=== PATIENT | male | born 1940 | race Caucasian/White ===

== ENCOUNTER 2021-05-13 14:51 | Inpatient (IN) | payer OTHER ==
[~2021-05-13] VITALS: Ht 175.3 cm; Wt 104.1 kg
[2021-05-13 16:00] VITALS: BP 124/89
[2021-05-13] MEDS ORDERED: LATANOPROST 0.2.5 ML OPHTHALMIC (18:00)
[2021-05-13] MEDS ORDERED: GLYBURIDE 5 MG T5 M1 PO (19:42)
[2021-05-13] MEDS ORDERED: ASA81BEC PO (19:42)
[2021-05-13] MEDS ORDERED: VYZULTA5 ML OPHTHALMIC (19:43)
[2021-05-13] MEDS ORDERED: TOPROL XL25 MG (19:44)
[2021-05-13] MEDS ORDERED: ROSUVASTATIN CAL5 MG PO (19:45)
--- NOTE | 2021-05-13 19:50 | NUR ---
REPORT RECEIVED FROM [facility]. NURSE STATED PT IS AN NSTEMI ORIGINALLY SCHEDULLED FOR A CABG BUT UNABLE DUE TO A COVID POSITIVE TEST. PT WAS RESCHEDULED AND BEGAN TO HAVE SHORTNESS OF BREATH. PT WENT INTO [facility] FOR THOSE SYMPTOMS. 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 VITAL SIGNS STABLE UPON ADMISSION AND PT DENIES PAIN.
[2021-05-13 19:52] VITALS: BP 103/65
[2021-05-13 20:54] LABS: HEMATOCRIT 46.4 % (42.0-52.0); HEMOGLOBIN 15.5 gm/dL (14.0-18.0); MCH 31.4 pg (26.0-34.0); MCHC 33.3 g/dL (28.0-37.0); MCV 94.2 fL (80.0-100.0); RBC 4.92 mil/uL (4.50-6.00); RDW 13.1 % (10.5-14.5); WBC 6.1 thou/uL (4.0-11.0)
[2021-05-13 22:07] LABS: APTT 28.2 Seconds (24.5-32.8); INR 1.04; PROTIME 11.3 Seconds (10.5-12.1)
[2021-05-13 23:30] VITALS: BP 108/66
[2021-05-14 04:27] VITALS: BP 113/76
[2021-05-14 05:41] LABS: ABSOLUTE NEUTROPHILS 3.3 thou/uL (1.4-8.2); BASOPHILS 1.8 % (0.0-2.0); EOSINOPHILS 5.7 % (0.0-3.0); HEMATOCRIT 42.5 % (42.0-52.0); HEMOGLOBIN 14.6 gm/dL (14.0-18.0); LYMPHOCYTES 17.3 % (24.0-44.0); MCH 31.5 pg (26.0-34.0); MCHC 34.2 g/dL (28.0-37.0); MCV 92.1 fL (80.0-100.0); MONOCYTES 9.8 % (1.0-8.0); PLATELET COUNT 223 thou/uL (150-400); POLYS 65.4 % (36.0-66.0); RBC 4.62 mil/uL (4.50-6.00); RDW 12.6 % (10.5-14.5); WBC 5.1 thou/uL (4.0-11.0)
[2021-05-14 06:05] LABS: CHOLESTEROL 153 mg/dL (<200); HDL CHOLESTEROL 41 mg/dL (>40); LDL CHOLESTEROL 82 mg/dL (<100); TC:HDL 3.7 Ratio (Not establshd); TRIGLYCERIDE 154 mg/dL (<150); VLDL 31 mg/dL (<40)
[2021-05-14 06:06] LABS: SERUM ASSESSMENT Clear
[2021-05-14 06:12] LABS: CALCIUM 8.7 mg/dL (8.5-10.1); POTASSIUM 3.8 mmol/L (3.5-5.1)
--- NOTE | 2021-05-14 07:16 | EKG ---
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 : 1940 Requested By: Latisha Nieto Order Number: [id number] MD: Migel Raines Measurements Intervals [place] Rate: 90 P: 77 OK: 251 QRS: 82 QRSD: 106 T: 191 QT: 408 QTc: 500 Interpretive Statements Sinus rhythm Ventricular premature complex Prolonged [place] interval Anterior infarct, old Nonspecific T abnormalities, lateral leads No previous ECG available for comparison Electronically Signed On 05-14-2021 7:15:52 CDT by Migel Raines [email or web address] <ELECTRONICALLY SIGNED> By: Migel Raines MD, [facility] 05/14/21 0715 1627 26 Migel Raines MD, FACC /EPI
--- NOTE | 2021-05-14 07:36 | NUR ---
SLEPT MOST OF SHIFT. STARTED HEPARIN GTT PER PROTOCOL PER DR. DEE. DENIES COMPLAINTS OF PAIN. STATES SHORTNESS OF AIR IS BETTER THIS AM. WORKING ON GOALS AND PLAN OF CARE FOR NOC. DR. JIMENEZ REEVALUATING FOR OHS. CONTINUE TO ASSSAKINA GALVIN.
[2021-05-14 08:03] VITALS: BP 111/68
[2021-05-14 09:09] LABS: CALCIUM 8.9 mg/dL (8.5-10.1); POTASSIUM 4.1 mmol/L (3.5-5.1)
[2021-05-14 09:17] LABS: ALBUMIN 3.3 g/dL (3.4-5.0); TOTAL BILIRUBIN 1.1 mg/dL (0.2-1.0); TOTAL PROTEIN 5.6 g/dL (6.4-8.2)
--- NOTE | 2021-05-14 12:01 | 2DMMODE ---
[facility] [place] [address] 2 D/M-MODE ECHOCARDIOGRAM Name: IRENE MATTA Room #: 210-P ADM IN M.R.#: [id number] Admission: 05/13/21 Attend Phys: Anthony Garcia MD Discharge: Date of : 39 Report #: [id number] THIS REPORT FOR: cc: Angelia Leach Tara M. PA Lammoglia, Francisco J. MD ~ APPROVED REPORT Study performed: 05/14/2021 11:07:56 EXAM: Comprehensive 2D, Doppler, and color-flow Echocardiogram Patient Location: Bedside Room #: 210 Status: routine BSA: 2.21 HR: 79 bpm BP: 111/68 mmHg Rhythm: Regular Other Information Study Quality: Adequate Indications Chest Pain Pre-Op CABG. 2D Dimensions RVDd: 33.00 mm IVSd: 9.03 (7-11mm) LVOT Diam: 23.14 (18-24mm) LVDd: 69.00 mm PWd: 9.00 (7-11mm) Ascending Ao: 38.00 (22-36mm) LVDs: 51.00 (25-40mm) Left Atrium: 42.00 (27-40mm) Aortic Root: 39.00 mm Volumes Left Atrial Volume (Systole) Single Plane 4CH: 68.14 mL Single Plane 2CH: 58.40 mL LA ESV Index: 30.00 mL/m2 Aortic Valve AoV Peak Raman.: 0.89 m/s AO Peak Gr.: 3.18 mmHg LVOT Max P.98 mmHg LVOT Max V: 0.50 m/s [facility] [address] [place] [address] 2 D/M-MODE ECHOCARDIOGRAM Name: IRENE MATTA Room #: 210-P [facility] IN [facility].#: [id number] Admission: 05/13/21 Attend Phys: Anthony Garcia MD Discharge: Date of : 39 Report #: [id number] Vmax: 2.34 cm2 Mitral Valve E/A Ratio: 0.7 MV Decel. Time: 123.83 ms MV E Max Raman.: 0.64 m/s MV A Raman.: 0.90 m/s MV PHT: 35.91 ms IVRT: 72.66 ms Pulmonary Valve PV Peak Raman.: 0.46 m/s PV Peak Gr.: 0.86 mmHg Pulmonary Vein P Vein S: 0.25 m/s P Vein D: 0.32 m/s P Vein S/D Ratio: 0.78 Tricuspid Valve TR Peak Raman.: 2.12 m/s RAP Estimate: 5.00 mmHg TR Peak Gr.: 18.00 mmHg PA Pressure: 23.00 mmHg Left Ventricle Left ventricle is severely dilated. Mild basal septal hypertrophy is present. Left ventricular systolic function is severely decreased. LVEF is 20%. Mild diastolic dysfunction is present (impaired relaxation pattern). Right Ventricle The right ventricle is normal size. Right ventricle is mildly hypokinetic. Atria The left atrium size is normal. The right atrium size is normal. Aortic Valve The aortic valve is normal in structure. Trace aortic regurgitation. There is no aortic valvular stenosis. Mitral Valve Mitral valve leaflets are mildly thickened. Mild mitral annular calcification. Mild mitral regurgitation. No evidence of mitral valve stenosis. [facility] [place] [address] [place] [address] 2 D/M-MODE ECHOCARDIOGRAM Name: IRENE MATTA Room #: [facility]- ADM IN M.R.#: [id number] Admission: 05/13/21 Attend Phys: Anthony Garcia MD Discharge: Date of : 39 Report #: [id number] Tricuspid Valve The tricuspid valve is normal in structure. Trace tricuspid regurgitation. Estimated PAP is 23mmHg. Pulmonic Valve The pulmonary valve is normal in structure. Trace pulmonic regurgitation. Great Vessels The sinuses are mildly dilated at 4.0cm. The ascending aorta is borderline dilated. IVC is normal in size and collapses >50% with inspiration. Pericardium Small pericardial fluid noted anterior by the right atrium. <Conclusion> Left ventricle is severely dilated. Mild basal septal hypertrophy is present. LVEF is 20%. The right ventricle is normal size. The left atrium size is normal. The aortic valve is normal in structure. Trace aortic regurgitation. Mitral valve leaflets are mildly thickened. Mild mitral annular calcification. Mild mitral regurgitation. The tricuspid valve is normal in structure. Trace tricuspid regurgitation. Estimated PAP is 23mmHg. The pulmonary valve is normal in structure. Trace pulmonic regurgitation. The sinuses are mildly dilated at 4.0cm. The ascending aorta is borderline dilated. Small pericardial fluid noted anterior by the right atrium. <ELECTRONICALLY SIGNED> By: Cisco Hammond MD 05/14/211200 00 00 Cisco Hammond MD /INF
[2021-05-14 12:07] VITALS: BP 102/63
[2021-05-14 14:36] LABS: URINE BILIRUBIN NEGATIVE (Negative); URINE BLOOD TRACE (Negative); URINE CLARITY CLEAR; URINE COLOR YELLOW; URINE GLUCOSE-RANDOM* TRACE (Negative); URINE KETONES NEGATIVE (Negative); URINE LEUKOCYTES-REFLEX NEGATIVE (Negative); URINE NITRITE-REFLEX NEGATIVE (Negative); URINE PROTEIN (DIPSTICK) NEGATIVE (Negative); URINE SPECIFIC GRAVITY 1.015 (1.005-1.035); URINE UROBILINOGEN 0.2 E.U./dl (0.2-1.0)
[2021-05-14 15:21] VITALS: BP 93/67
--- NOTE | 2021-05-14 18:28 | NUR ---
PT HAD A BUSY MORNING WITH THE MULTIPLE TESTS THROUGHOUT. PT IS ON HEPARIN WITH COREG TESTED THIS AFTERNOON THAT CAME BACK AT 46.9 AND BY THE PROTOCAL PT RECEIVED A 3180 UNIT BOLUS AND AN INCREASE OF 2.1 ML/HR MAKING A TOTAL INFUSION OF 13.2 ML/HR. PT ALSO RECEIVED HIS FLU SHOT TODAY.
[2021-05-14 20:10] VITALS: BP 101/69
[2021-05-14 23:23] VITALS: BP 127/81
[2021-05-15] VITALS (28 sets, daily range): BP systolic 84–121; BP diastolic 50–75
[2021-05-15 03:06] LABS: GLYCOHEMOGLOBIN (HGB A1C) 10.2 % (4.8-5.6)
--- NOTE | 2021-05-15 03:13 | NUR ---
PT IS A/O X4 AND IS UP AD [facility]. ROOM AIR. VSS. AFEBRILE. DENIES C/O PAIN OR DISCOMFORT. MEDICATIONS GIVEN PER OCT. HELD THE CARVEDILOL. CURRENTLY NPO DIET AWAITING PROCEDURE IN THE AM. FALL PRECAUTIONS IN PLACE, CALL LIGHT IS WITHIN REACH. CALLS OUT APPROPRIATELY FOR ASSISTANCE.
--- NOTE | 2021-05-15 10:31 | EKG ---
[place] [address] 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 : 1940 Requested By: Graeme Sena Order Number: [id number] MD: Migel Raines Measurements Intervals [place] Rate: 73 P: -21 DC: 271 QRS: 52 QRSD: 114 T: QT: 415 QTc: 458 Interpretive Statements Sinus rhythm Prolonged DC interval Borderline low voltage, extremity leads Anteroseptal infarct, old Minimal ST depression, inferior leads Baseline wander in lead(s) V2,V3 Compared to ECG 05/13/2021 16:27:49 ST (T wave) deviation now present Ventricular premature complex(es) no longer present T-wave abnormality no longer present Myocardial infarct finding still present Electronically Signed On 05-15-2021 10:31:27 CDT by Migel Raines [email or web address] <ELECTRONICALLY SIGNED> By: Migel Raines MD, FAC 05/15/21 1031 1 1 Migel Raines MD, [facility] /EPI
[2021-05-15 13:26] LABS: HEMATOCRIT 30.2 % (42.0-52.0); MCH 31.8 pg (26.0-34.0); MCHC 34.5 g/dL (28.0-37.0); MCV 92.3 fL (80.0-100.0); RBC 3.27 mil/uL (4.50-6.00); RDW 12.9 % (10.5-14.5); WBC 8.8 thou/uL (4.0-11.0)
[2021-05-15 13:44] LABS: HEMOGLOBIN 10.4 gm/dL (14.0-18.0)
[2021-05-15 13:47] LABS: INR 1.41; PROTIME 15.1 Seconds (10.5-12.1)
[2021-05-15 13:54] LABS: APTT 30.4 Seconds (24.5-32.8)
--- NOTE | 2021-05-15 13:58 | NUR ---
Nutrition: Pt CABG x [address] will followup closer to D/C to determine education needs.
[2021-05-15 14:12] LABS: POC BE 5 mmol/L (-2.0 to +3.0); POC CA IONIZED 4.4 mg/dL (4.5-5.3); POC GLUCOSE 98 mg/dL (70-99); POC HCO3 28.4 mmol/L (22.0-26.0); POC HEMOGLOBIN 10.5 g/dL (14.0-18.0); POC POTASSIUM 4.1 mmol/L (3.5-5.1); POC SODIUM 139 mmol/L (136-145); POC pH 7.481 (7.360-7.450)
[2021-05-15 14:12] LABS: POC BE 2 mmol/L (-2.0 to +3.0); POC CA IONIZED 4.8 mg/dL (4.5-5.3); POC GLUCOSE 159 mg/dL (70-99); POC HCO3 25.8 mmol/L (22.0-26.0); POC HEMOGLOBIN 13.6 g/dL (14.0-18.0); POC POTASSIUM 3.8 mmol/L (3.5-5.1); POC SODIUM 139 mmol/L (136-145); POC pCO2 38.1 mmHg (35.0-45.0); POC pH 7.439 (7.360-7.450)
[2021-05-15 14:12] LABS: POC BE 7 mmol/L (-2.0 to +3.0); POC CA IONIZED 4.3 mg/dL (4.5-5.3); POC GLUCOSE 104 mg/dL (70-99); POC HCO3 30.6 mmol/L (22.0-26.0); POC HEMOGLOBIN 10.9 g/dL (14.0-18.0); POC POTASSIUM 3.7 mmol/L (3.5-5.1); POC SODIUM 139 mmol/L (136-145); POC pCO2 44.9 mmHg (35.0-45.0); POC pH 7.442 (7.360-7.450)
[2021-05-15 14:12] LABS: POC BE 3 mmol/L (-2.0 to +3.0); POC CA IONIZED 4.8 mg/dL (4.5-5.3); POC GLUCOSE 128 mg/dL (70-99); POC HCO3 26.7 mmol/L (22.0-26.0); POC HEMOGLOBIN 12.9 g/dL (14.0-18.0); POC POTASSIUM 3.6 mmol/L (3.5-5.1); POC SODIUM 139 mmol/L (136-145); POC pCO2 39.6 mmHg (35.0-45.0); POC pH 7.438 (7.360-7.450)
[2021-05-15 14:13] LABS: POC BE 4 mmol/L (-2.0 to +3.0); POC CA IONIZED 4.7 mg/dL (4.5-5.3); POC GLUCOSE 142 mg/dL (70-99); POC HCO3 27.5 mmol/L (22.0-26.0); POC HEMOGLOBIN 10.2 g/dL (14.0-18.0); POC POTASSIUM 3.5 mmol/L (3.5-5.1); POC SODIUM 141 mmol/L (136-145); POC pCO2 37.2 mmHg (35.0-45.0); POC pH 7.477 (7.360-7.450)
[2021-05-15 14:13] LABS: POC BE 0 mmol/L (-2.0 to +3.0); POC CA IONIZED 4.7 mg/dL (4.5-5.3); POC GLUCOSE 123 mg/dL (70-99); POC HCO3 24.2 mmol/L (22.0-26.0); POC HEMOGLOBIN 10.9 g/dL (14.0-18.0); POC POTASSIUM 3.3 mmol/L (3.5-5.1); POC SODIUM 142 mmol/L (136-145); POC pCO2 35.7 mmHg (35.0-45.0)
[2021-05-15 14:13] LABS: POC BE 6 mmol/L (-2.0 to +3.0); POC CA IONIZED 4.4 mg/dL (4.5-5.3); POC GLUCOSE 138 mg/dL (70-99); POC HEMOGLOBIN 9.9 g/dL (14.0-18.0); POC POTASSIUM 4.1 mmol/L (3.5-5.1); POC SODIUM 139 mmol/L (136-145); POC pCO2 43.2 mmHg (35.0-45.0)
[2021-05-15 14:13] LABS: POC BE 5 mmol/L (-2.0 to +3.0); POC CA IONIZED 4.5 mg/dL (4.5-5.3); POC GLUCOSE 124 mg/dL (70-99); POC HCO3 29.2 mmol/L (22.0-26.0); POC HEMOGLOBIN 10.2 g/dL (14.0-18.0); POC POTASSIUM 4.1 mmol/L (3.5-5.1); POC SODIUM 140 mmol/L (136-145); POC pCO2 40.5 mmHg (35.0-45.0); POC pH 7.466 (7.360-7.450)
--- NOTE | 2021-05-15 14:21 | NUR ---
Chart reveiwed and case discussed with the care team. Pt is postop CABG x5 this morning and is now in ICU. He is from [place], [place] and lives with his . He is reported to be a&ox4 and indep with gait and adl's per the care team. He was originally schedule to have heart surgery at [facility] but had a postive covid test on 04/27/21. His surgery was cancelled and he was sent home to [facility]. He ended up in the ER at [facility] and transfered here as [facility] (where he sees cardiology) was full. Will follow along for dc planning recommendations pending his therapy evals. He may benefit from referral, outpt cardiac rehab or rehab eval pending his progress.
--- NOTE | 2021-05-15 14:30 | NUR ---
PT RECIEVED FROM SURGERY OCC BY [facility] AND THE OR NURSING STAFF, DR. JIMENEZ AND BARBARA. pT SEDATED AND AREADY WARM STILL SEDATED BUT MOVING HIS ARMS AND LEGS A LITTLE. mONITOR SHOWS ST, pACEMAKER ATTACHED BUT NOT ON. ASSESSMENT DONE SEE [facility]. VS AND HEMODYNAMIC NUMBERS LOOK GOOD. PT ON DOBUAMINE AT 10 MCG AND INSULIN 2 UNITS AT THIS TIME. CHEST TUBES DRAINING GOOD AND FREDDIE AND FEMORAL LINES INTACT. MEDRANO HAS SOME HEMATURIA. WILL CONT TO MONITOR. cONTINUE WITH cabg PLAN OF CARE.
[2021-05-15 15:06] LABS: HEMATOCRIT 33.7 % (42.0-52.0); HEMOGLOBIN 11.5 gm/dL (14.0-18.0); MCH 31.6 pg (26.0-34.0); MCHC 34.1 g/dL (28.0-37.0); MCV 92.6 fL (80.0-100.0); RBC 3.64 mil/uL (4.50-6.00); RDW 12.7 % (10.5-14.5); WBC 8.5 thou/uL (4.0-11.0)
[2021-05-15 15:09] LABS: BE(vivo) -1.9 mmol/L (-2 to +3); HCO3 23.2 mmol/L (22.0-26.0); PCO2 40.7 mmHg (35.0-45.0); pH 7.374 (7.360-7.450); sO2 94.6 % (92.0-98.0)
[2021-05-15 15:19] LABS: APTT 32.8 Seconds (24.5-32.8); INR 1.18; PROTIME 12.8 Seconds (10.5-12.1)
[2021-05-15 15:22] LABS: CALCIUM 7.9 mg/dL (8.5-10.1); CREATININE 0.8 mg/dL (0.7-1.3); MAGNESIUM 2.2 mg/dL (1.8-2.4); POTASSIUM 3.7 mmol/L (3.5-5.1)
--- NOTE | 2021-05-15 15:30 | NUR ---
AT BEDSIDE AND UPDATE GIVEN, ORIENTATED TO ROOM AND MACHINES AND MONITOR. VISITING HOURS.
--- NOTE | 2021-05-15 16:00 | NUR ---
PATIENT WAKING UP AND NODDING APPROPRIATELY, ALL VS AND HEMODYNAMIC'S STILL LOOK GOOD. wILL START HIS CPAP TRIAL SOON. RT NOTIFIED.
[2021-05-15 16:57] LABS: BE(vivo) -1.4 mmol/L (-2 to +3); HCO3 23.6 mmol/L (22.0-26.0); PCO2 40.5 mmHg (35.0-45.0); PO2 81.1 mmHg (80.0-100.0); pH 7.383 (7.360-7.450); sO2 95.8 % (92.0-98.0)
--- NOTE | 2021-05-15 17:00 | NUR ---
PT TOLERATED CPAP TRIAL AND DR JIMENEZ HAS BEEN HERE. ABG'S CALLED AND ORDES TO EXTUBATE PT. WILL CONT TO MONITOR. 1705 PT EXTUBATED AND PLACED ON 60% FS. SATS GOOD AND PT WANTING THE TUBE OUT. RT HERE AND PT LOOKS GOOD pAIN MEDS GIVEN AND PT ENCOURAGED TO GET SOME REST. PT INFORMED OF ALL PROCEDURES AND MEDICATIONS.
[2021-05-15 18:43] LABS: CALCIUM 7.9 mg/dL (8.5-10.1); CREATININE 0.8 mg/dL (0.7-1.3); POTASSIUM 3.9 mmol/L (3.5-5.1)
[2021-05-16] VITALS (10 sets, daily range): BP systolic 74–98; BP diastolic 49–57
[2021-05-16 05:34] LABS: HEMATOCRIT 31.1 % (42.0-52.0); HEMOGLOBIN 10.6 gm/dL (14.0-18.0); MCH 31.9 pg (26.0-34.0); MCHC 34.2 g/dL (28.0-37.0); MCV 93.4 fL (80.0-100.0); RBC 3.33 mil/uL (4.50-6.00); RDW 12.8 % (10.5-14.5); WBC 7.1 thou/uL (4.0-11.0)
[2021-05-16 05:52] LABS: CALCIUM 7.7 mg/dL (8.5-10.1); CREATININE 0.8 mg/dL (0.7-1.3); MAGNESIUM 2.3 mg/dL (1.8-2.4); POTASSIUM 3.5 mmol/L (3.5-5.1)
--- NOTE | 2021-05-16 07:24 | NUR ---
Progressing toward goals. Dobutamine titrated down to 5 mcg/kg/min. Hemodynamics within prescribed parameters. Urine output 450 cc for this shift. Pain well controlled with Fentanyl q 2 hours. Blood sugar well controlled with insulin gtt.
--- NOTE | 2021-05-16 15:00 | EKG ---
[place] [address] [facility] [place] [address] ELECTROCARDIOGRAM REPORT Name: IRENE MATTA Room #: 251-P ADM IN M.R.#: [id number] Admission: 05/13/21 Attend Phys: Anthony Garcia MD Discharge: Date of : 39 Report #: [id number] [facility] Test Date: 2021-05-15 Test Time: 15:11:35 Pat Name: IRENE MATTA Department: Room: 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 : 1940 Requested By: Graeme Sena Order Number: [id number] MD: Herber Miles Measurements Intervals [place] Rate: 106 P: 132 [place]: 191 QRS: 117 QRSD: 137 T: -53 QT: 381 QTc: 506 Interpretive Statements Sinus tachycardia Right bundle branch block Compared to ECG 05/15/2021 07:12:28 Right bundle-branch block now present Septal Q waves are less prominent Electronically Signed On 05-16-2021 15:00:24 CDT by Herber Miles [email or web address] <ELECTRONICALLY SIGNED> By: Herber Miles MD, [facility] 05/16/21 1500 10 10 Herber Miles MD, [facility] /EPI
--- NOTE | 2021-05-16 15:12 | EKG ---
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: : 1940 Requested By: Graeme Sena Order Number: [id number] MD: Herber Miles Measurements Intervals [place] Rate: 89 P: 114 MN: 177 QRS: 54 QRSD: 101 T: QT: 409 QTc: 498 Interpretive Statements Sinus rhythm Nonspecific T wave abnormality Borderline prolonged QT interval Baseline wander in lead(s) V4 Compared to ECG 05/15/2021 15:11:35 Right bundle branch block is no longer present Electronically Signed On 05-16-2021 15:12:03 CDT by Herber Miles [email or web address] <ELECTRONICALLY SIGNED> By: Herber Miles MD, [facility] 05/16/21 1512 09 Herber Miles MD, [facility] /EPI
[2021-05-17] VITALS (16 sets, daily range): BP systolic 88–119; BP diastolic 51–77
[2021-05-17 06:48] LABS: HEMATOCRIT 32.3 % (42.0-52.0); MCH 31.9 pg (26.0-34.0); MCV 93.7 fL (80.0-100.0); RBC 3.45 mil/uL (4.50-6.00); RDW 12.7 % (10.5-14.5); WBC 9.8 thou/uL (4.0-11.0)
[2021-05-17 08:25] LABS: CALCIUM 8.5 mg/dL (8.5-10.1); CREATININE 1.1 mg/dL (0.7-1.3); POTASSIUM 3.7 mmol/L (3.5-5.1)
--- NOTE | 2021-05-17 09:08 | NUR ---
BETI CASTANO & MAMI IN. LABS SENT. PCXR & EKG DONE.--VW
--- NOTE | 2021-05-17 13:40 | NUR ---
LEVO & DOBUTAMINE WEANED OFF. PT GOTTEN OOB W ASSIST OF P.T. & 1 TO WATCH LINES. DID WELL,GAIT STRONG. SG D/C'D ONCE PT IN CHAIR. AT BEDSIDE. ENC PULM TOILET. PT DENIES NEED FOR ANY PAIN MEDS AT THIS TIME.--VW
--- NOTE | 2021-05-17 13:47 | EKG ---
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 : 1940 Requested By: Herber Miles Order Number: [id number] MD: Herber Miles Measurements Intervals [place] Rate: 96 P: 88 [place]: 227 QRS: 34 QRSD: 108 T: 10 QT: 395 QTc: 500 Interpretive Statements Sinus rhythm Prolonged [place] interval Low voltage, precordial leads Borderline prolonged QT interval Compared to ECG 05/16/2021 09:10:03 First degree AV block now present T wave abnormalities less pronounced Electronically Signed On 05-17-2021 13:47:09 CDT by Herber Miles [email or web address] <ELECTRONICALLY SIGNED> By: Herber Miles MD, FACC 05/17/21 1347 1005 1005 Herber Miles MD, [facility] /EPI
[2021-05-18] VITALS (14 sets, daily range): BP systolic 89–141; BP diastolic 55–82
--- NOTE | 2021-05-18 10:17 | O ---
[facility] [place] [address] OPERATIVE REPORT Name: IRENE MATTA Room #: 251-P ADM IN M.R.#: [id number] Admission: 05/13/21 Attend Phys: Anthony Garcia MD Discharge: Date of : 39 Report #: [id number] THIS REPORT FOR: cc: Angelia Leach Tara M. PA Forman, John M. MD ~ DATE OF SERVICE: 05/15/2021 PREOPERATIVE DIAGNOSIS: Coronary artery disease. POSTOPERATIVE DIAGNOSIS: Coronary artery disease. OPERATIONS: Coronary artery bypass x5 including left internal mammary artery to left anterior descending artery; saphenous vein to diagonal, marginal 1, and marginal 2 and saphenous vein to posterior descending artery and endoscopic harvest left greater saphenous vein. SURGEON: Franklin Butterfield MD DECALER: TOM Garcia. ANESTHESIA: General. INDICATIONS FOR PROCEDURE: The patient is an 80-year-old with severe 3-vessel coronary artery disease. The patient is originally from [place] and had been seen by Dr. Christiano Sterling. Cardiac catheterization was done in [place]. The patient had been scheduled for surgery in [place], but this was canceled when a positive COVID test was obtained back in mid April. The patient began to have unstable angina and Dr. Sterling advised the patient to come to our institution. FINDINGS AND TECHNIQUE: After general anesthesia was established, saphenous vein was harvested and prepared to use as a conduit. An endoscopic approach was employed. Exposure was obtained through median sternotomy. Left internal mammary artery was harvested from chest wall. Pericardial well was made. Cannulation sutures were placed. Heparin was given. Aorta was cannulated. Right atrium was cannulated. Cardioplegia needle was positioned in the aortic root. Retrograde cardioplegia catheter was placed in the coronary sinus. Cardiopulmonary bypass was established. Aorta was cross clamped. Antegrade and retrograde cardioplegia were given. Ice was poured into the pericardial well. The heart was stopped. During electromechanical arrest, the distal anastomoses were performed. An [facility] [address] [place] [address] OPERATIVE REPORT Name: IRENE MATTA Room #: 251-P [facility] IN M.R.#: [id number] Admission: 05/13/21 Attend Phys: Anthony Garcia MD Discharge: Date of : 39 Report #: [id number] end-to-side anastomosis was made between vein and the posterior descending artery. Cold cardioplegia was given. Separate segment of vein was sewn in end-to-side fashion to the second branch of the large marginal artery. Cold cardioplegia was given. The same segment of vein was sewn to the first branch of the large marginal artery. Cold cardioplegia was given. The same segment of vein was sewn in end-to-side fashion to the diagonal artery. Cold cardioplegia was given. Left internal mammary artery was sewn in end-to-side fashion to the left anterior descending to the chronically occluded left anterior descending artery. Patency of this vessel was checked with the temperature technique and the Doppler. Cold cardioplegia was given. Two proximal anastomoses were performed. When these were complete, warm retrograde cardioplegia was given followed by warm continuous blood to the coronary sinus. As the patient warmed, nice cardiac activity resumed, chest tubes and pacing wires were placed. A marker was placed around the proximal anastomoses. When the patient was warm, he was weaned from cardiopulmonary bypass on 10 mcg/kg/minute of dobutamine. This was used as the patient had an ejection fraction of 20% prior to surgery. Because of concerns about hemodynamics, a right femoral line was placed using Seldinger technique in case a balloon pump was necessary. The patient slowly improved, however, and balloon placement was not necessary. Venous cannula was removed. Protamine was given, the aortic cannula was removed. Flows were measured in all the bypass grafts. When hemostasis was satisfactory, chest was irrigated with antibiotic solution and closed in the usual fashion. The patient was taken to the recovery area in good condition having tolerated the procedure well. All counts were reported as correct. <ELECTRONICALLY SIGNED> By: Franklin Butterfield MD 05/18/21 1017 1540 1556 Franklin Butterfield MD /nt
--- NOTE | 2021-05-18 10:17 | HC ---
[facility] [place] [place] [address] CONSULTATION Name: IRENE MATTA Room #: 251-P ADM IN M.R.#: [id number] Admission: 05/13/21 Attend Phys: Anthony Garcia MD Discharge: Date of : 39 Report #: [id number] THIS REPORT FOR: cc: Angelia Leach Tara M. PA Forman, John M. MD ~ DATE OF SERVICE: 05/14/2021 REASON FOR CONSULT: The patient is an 80-year-old admitted to this facility for consideration of definitive treatment of coronary artery disease. HISTORY OF PRESENT ILLNESS: The patient has received care at [facility]. Cardiac catheterization was done in mid April in [place], [place]. This showed severe 3-vessel disease including total occlusion of the left anterior descending with right to left collateral flow and high-grade lesions of the circumflex and right coronary arteries. Left ventricular function is reduced with an ejection fraction of 25%. The patient had been scheduled for surgery at [facility] in [place]. The patient had a random COVID positive test despite the fact he was negative before this and negative after. In any event, surgery was delayed, but the patient has been having unstable angina and [facility]ner sought help for him in a more expeditious fashion and the patient sought care in our Emergency Department and is now admitted. PAST MEDICAL HISTORY: Past history is in addition significant for diabetes and hyperlipidemia. The patient presents with both angina and heart failure symptoms. The patient is also treated for hypertension. SOCIAL HISTORY: The patient is retired. 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 REVIEW OF SYSTEMS: GENERAL: Denies fever or chills. EYES: Denies vision change. HEENT: Denies headache, sinus problems. RESPIRATORY: Shortness of breath with exertion. CARDIAC: Unstable angina. GASTROINTESTINAL: No nausea, vomiting, diarrhea. GENITOURINARY: No urgency, frequency. He has been treated for prostatism in the past. MUSCULOSKELETAL: Denies specific bone or joint pain. SKIN: Denies rash or infection. [facility] [address] [place] [address] CONSULTATION Name: IRENE MATTA Room #: 251-P [facility] IN M.R.#: [id number] Admission: 05/13/21 Attend Phys: Anthony Garcia MD Discharge: Date of : 39 Report #: [id number] NEUROLOGIC: Denies motor or sensory loss. HEMATOLOGIC: Denies bruisability or bleeding. ENDOCRINE: Denies goiter or tremor. PHYSICAL EXAMINATION: VITAL SIGNS: When seen, temperature 36.4, heart rate 80, blood pressure 108/66, O2 sat 96 on 2 liters. HEENT: No scleral icterus. No arcus. NECK: No mass, no bruit. CHEST: I do not hear rales, no crackles, no rhonchi. HEART: Rhythm regular, no murmur. Distant sounds. ABDOMEN: Soft, somewhat protuberant. EXTREMITIES: No clubbing, cyanosis or edema. No obvious saphenous vein problems. SKIN: No rash or infection. NEUROLOGIC: No motor or sensory loss. MUSCULOSKELETAL: No bone or joint pain. PSYCHIATRIC: Oriented x 3 and shows insight into problem. I discussed the findings of the cardiac catheterization now available (they were not available when I saw the patient initially). The patient has severe 3-vessel coronary disease including chronic occlusion of the LAD and reduced ventricular function. Risks and details, options and alternatives, were discussed. Risks include, but are not limited to, bleeding, infection, anesthesia risks, heart and lung problems, stroke, and . The patient understands all of this and he wishes to proceed. It is a privilege to participate in this challenging patient's care. Thank you for the consult. <ELECTRONICALLY SIGNED> By: Franklin Butterfield MD 05/18/21 1017 1904 0340 Franklin Butterfield MD /nt
--- NOTE | 2021-05-18 14:32 | NUR ---
Per MD review in AM LOS meeting; Continue current level of s/p CABG x5 / POD 3 and placement of left atrial appendage clip. Today per CTS the introducer was discontinued along with casas and removal of PCT and pacer wires. Patient has been given orders to be up to chair for meals and plans to transfer to CCU later in the day. CM role introduced on 05-15-21 and plan remains per cardiology for possible outpatient cardiac rehab or home health all dependent on therapy evaluations. Per PT recommendations as of 05-17-21 is to discharge home with home health. Attempted times 2 to speak with spouse Nicole Navarrete at [phone] without success. CM will follow with patient who is listed as A&O X4 and spouse and arrange for home health in [facility] noting that [facility] at [phone] and [facility] in [place] at [phone] are available options.
--- NOTE | 2021-05-18 14:50 | NUR ---
PT HAS BEEN PROGRESSING TOWARDS DISCHARGE THROUGHOUT THE DAY, ABLE TO TOLERATE TURNS/TRANSFER TO CHAIR/COMMODE. INTRODUCER/MEDRANO/PLEURAL TUBE REMOVED, PT IS PROGRESSING TOWARDS DISCHARGE. CURRENT ISSUE PATIENT IS FACING AT THIS TIME, IS ANXIETY. ALTHOUGH OXYGEN SATURATION IS 97-99% ON CONTINUOUS 3L/NC;W/O CHANGE THROUGHOUT THE SHIFT. PT IS CONTINUES TO SAY THAT HE FEELS LIKE HE CANNOT BREATHE. NO COMPLAINTS OF PAIN. PATIENT IS CONSOLABLE WHEN MOVED FROM CHAIR TO BED;VICE VERSA, BUT CONSOLATION LASTS FOR ABOUT FIVE MINUTES UNTIL PATIENT IS CALLING OUT OR ATTEMPTING TO GET OUT OF BED ON OWN ACCORD. MULTIPLE EDUCATION GIVEN TO PATIENT ABOUT USING THE CALL LIGHT, AT BEDSIDE WHEN RN PROVIDED THESE TEACHINGS. PT VERBALIZES UNDERSTANDING BUT OVERWHELMED BY ANXIETY WHEN ACTING IMPULSIVELY. PHYSICIAN MEAT CUTTER NOTIFIED AND REQUESTED ANXIETY MEDICATION.
[2021-05-18 20:13] LABS: HEMATOCRIT 34.2 % (42.0-52.0); HEMOGLOBIN 11.8 gm/dL (14.0-18.0); MCHC 34.5 g/dL (28.0-37.0); MCV 92.8 fL (80.0-100.0); RBC 3.68 mil/uL (4.50-6.00); RDW 12.9 % (10.5-14.5); WBC 7.8 thou/uL (4.0-11.0)
[2021-05-18 20:20] LABS: CREATININE 1.2 mg/dL (0.7-1.3); POTASSIUM 3.9 mmol/L (3.5-5.1)
[2021-05-19] VITALS (12 sets, daily range): BP systolic 96–142; BP diastolic 51–83
--- NOTE | 2021-05-19 07:30 | EKG ---
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: ANGY : 1940 Requested By: Graeme Sena Order Number: [id number] MD: Migel Raines Measurements Intervals [place] Rate: 86 P: 42 CT: 170 QRS: 54 QRSD: 111 T: -30 QT: 374 QTc: 448 Interpretive Statements Sinus rhythm Low voltage, extremity and precordial leads Compared to ECG 05/17/2021 10:05:27 First degree AV block no longer present Electronically Signed On 05-19-2021 7:30:25 CDT by Migel Raines [email or web address] <ELECTRONICALLY SIGNED> By: Migel Raines MD, [facility] 05/19/21729 3 3 Migel Raines MD, [facility] /EPI
[2021-05-19 10:12] LABS: URINE BILIRUBIN 1+ (Negative); URINE BLOOD 3+ (Negative); URINE CLARITY SL CLOUDY; URINE COLOR BROWN; URINE GLUCOSE-RANDOM* TRACE (Negative); URINE KETONES 1+ (Negative); URINE LEUKOCYTES TRACE (Negative); URINE NITRITE NEGATIVE (Negative); URINE PROTEIN (DIPSTICK) 2+ (Negative); URINE SPECIFIC GRAVITY 1.015 (1.005-1.035)
[2021-05-19 10:18] LABS: ICTOTEST (BILI CONFIRMATORY) Positive (Negative)
[2021-05-19 10:32] LABS: BACTERIA 1-9 Few /HPF (None Seen); CASTS None Seen /LPF (None Seen); CRYSTALS None Seen /LPF (None Seen); SQUAMOUS None Seen /LPF (0-3); URINE RBC >20 Many /HPF (NONE SEEN); URINE WBC 1-5 Rare /HPF (NONE SEEN)
--- NOTE | 2021-05-19 12:37 | NUR ---
Per MD review in AM LOS meeting; Continue current level of s/p CABG x5 / POD 4 and placement of left atrial appendage clip. Today per CTS and attending noted new urinary retention and asked for consult to psych for post-operative depression and possible delirium. Plan still remains for the patient to be up to chair for meals and plans to transfer to CCU later in the day. CM role introduced on 05-15-21 and plan remains per cardiology for possible outpatient cardiac rehab or home health all dependent on therapy evaluations. Per PT recommendations as of 05-17-21 is to discharge home with home health. Attempted times 2 to speak with spouse Nicole Navarrete at [phone] without success. CM will follow with patient who is listed as A&O X4 and spouse and arrange for home health in [facility] noting that [facility] at [phone] and [facility] in [place] at [phone] are available options. CM continues to follow for discharge planning and needs.
--- NOTE | 2021-05-19 13:45 | NUR ---
PT IS PROGRESSING TOWARDS DISCHARGE AT THIS TIME, PT IS ABLE TO MAKE HEADWAY ON PHYSICAL ACTIVITIES BUT DELIRIUM/CONFUSION ;ESPECIALLY AT NIGHT TIME, CONTINUES TO BE THE GREATEST BARRIER AGAINST PATIENT ADVANCING. FACT COMMUNICATED TO , PSYC CONSULT ORDERED, SAW THE PATIENT. PT UA WAS ATTEMPTED IN THE MORNING, WAS COMPLETED THOUGH PATIENT HAD TACTILE TENDERNESS TO LOWER QUADRANTS, WHEN BLADDER SCANNED S/P PATIENT HAD >697 URINE IN THE BLADDER REMAINING. NOTIFIED, UA SAMPLE SENT OVER, ORDER FOR INDWELLING MEDRANO RECEIVED, UROLOGY CONSULTED, PT HAS HISTORY OF URINARY RETENTION AND WAS BEING SEEN BY UROLOGIST BACK IN [place], [place] PER . TAMSULOSIN GIVEN PT HAS VERY BROWN URINE OUTPUT, WAS ENCOURAGED PO FLUID THOUGHOUT THE DAY. PT AWAITING TRANSFER TO CCU, ORDERS ACKNOWLEDGED. PT/OT SEEN WORKING WITH THE PATIENT, PT TIRED AFTERWARDS, LESS RESTLESSNESS PRESENT, OBSERVED WORKING FOR LESSENING PT'S ANXIETY. 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 RN COMMUNICATED THIS TO WELL.
[2021-05-19 14:34] LABS: ABSOLUTE NEUTROPHILS 4.8 thou/uL (1.4-8.2); BASOPHILS 0.6 % (0.0-2.0); EOSINOPHILS 1.1 % (0.0-3.0); HEMATOCRIT 31.6 % (42.0-52.0); HEMOGLOBIN 10.5 gm/dL (14.0-18.0); LYMPHOCYTES 8.2 % (24.0-44.0); MCH 31.4 pg (26.0-34.0); MCHC 33.4 g/dL (28.0-37.0); MONOCYTES 15.1 % (1.0-8.0); PLATELET COUNT 143 thou/uL (150-400); RBC 3.36 mil/uL (4.50-6.00); WBC 6.4 thou/uL (4.0-11.0)
[2021-05-19 14:46] LABS: CALCIUM 8.3 mg/dL (8.5-10.1); CREATININE 1.1 mg/dL (0.7-1.3)
[2021-05-20 02:27] VITALS: BP 114/60
[2021-05-20 04:21] VITALS: BP 111/58
[2021-05-20 05:44] LABS: HEMATOCRIT 34.2 % (42.0-52.0); HEMOGLOBIN 11.4 gm/dL (14.0-18.0); MCH 31.9 pg (26.0-34.0); MCHC 33.3 g/dL (28.0-37.0); MCV 95.9 fL (80.0-100.0); RBC 3.56 mil/uL (4.50-6.00); WBC 6.4 thou/uL (4.0-11.0)
[2021-05-20 05:47] LABS: CALCIUM 8.5 mg/dL (8.5-10.1); CREATININE 0.8 mg/dL (0.7-1.3); MAGNESIUM 2.4 mg/dL (1.8-2.4); POTASSIUM 3.8 mmol/L (3.5-5.1)
--- NOTE | 2021-05-20 06:34 | NUR ---
Progressing towards goal. Pt slept most of the shift and only required reorientation once and become fully oriented during the shift. No signs of delirium noted, pt remained afebrile and able to express needs appropriately. VSS, SR on tell, still on 2.0L high flow cannula with sats >95%. Pang output of 650, pt improved on oral intake during shift. updated via phone. Report to be given to day shift.
[2021-05-20 09:06] LABS: URINE CLARITY CLOUDY; URINE COLOR BROWN
[2021-05-20 09:09] LABS: URINE LEUKOCYTES-REFLEX 3+ (Negative); URINE NITRITE-REFLEX NEGATIVE (Negative)
[2021-05-20 09:10] LABS: ICTOTEST (BILI CONFIRMATORY) Negative (Negative); URINE BILIRUBIN NEGATIVE (Negative); URINE BLOOD 3+ (Negative); URINE GLUCOSE-RANDOM* NEGATIVE (Negative); URINE KETONES 1+ (Negative); URINE PROTEIN (DIPSTICK) 2+ (Negative); URINE SPECIFIC GRAVITY 1.015 (1.005-1.035); URINE UROBILINOGEN 0.2 E.U./dl (0.2-1.0)
[2021-05-20 09:31] LABS: URINE RBC >20 Many /HPF (NONE SEEN); URINE WBC-REFLEX >25 Many /HPF (0-5)
[2021-05-20 09:32] LABS: CASTS None Seen /LPF (None Seen); MUCUS 0-3 Light strn/LPF (None Seen); SQUAMOUS None Seen /LPF (0-3)
[2021-05-20 09:35] VITALS: BP 115/56
[2021-05-20 09:53] LABS: CRYSTALS None Seen /LPF (None Seen)
[2021-05-20 11:31] VITALS: BP 107/55
[2021-05-20 14:15] VITALS: BP 100/49
--- NOTE | 2021-05-20 15:01 | NUR ---
possible able to move out of icu if bed opens up.
--- NOTE | 2021-05-20 17:40 | NUR ---
PT TRANSFER FROM ICU AT APPROX 1735. PT AFEBRILE, ADEQUATE UOP (HEMATURIA, PROVIDER AWARE), NO BM, FAIR APPETITE. ALIREZA DRESSING IN PLACE. BILATERAL STERNUM PRESSURE DRESSINGS C/D/I. PT AND AT BEDSIDE HAVE BEEN THOUROUGHLY UPDATED AND EDUCATED ON PT CONDITION AND POC. PT SLOWLY PROGRESSING TOWARDS POC.
--- NOTE | 2021-05-20 18:27 | NUR ---
RN TO RN REPORT COMPLETE. THIS PT IS TRANSFERRING TO CCU RM 215. HE HAS ABAD, VSS, AND IS A/OX4. PT HAS BEEN IN THE CHAIR ALL DAY; HE IS READY FOR TRANSFER.
[2021-05-20 20:15] VITALS: BP 112/65
[2021-05-21] VITALS: BP 103/67
[2021-05-21 04:45] VITALS: BP 103/53
[2021-05-21 06:06] LABS: HEMATOCRIT 33.3 % (42.0-52.0); HEMOGLOBIN 11.2 gm/dL (14.0-18.0); MCH 31.6 pg (26.0-34.0); MCHC 33.6 g/dL (28.0-37.0); MCV 93.8 fL (80.0-100.0); RBC 3.54 mil/uL (4.50-6.00); RDW 12.8 % (10.5-14.5); WBC 4.9 thou/uL (4.0-11.0)
[2021-05-21 06:45] LABS: CALCIUM 8.9 mg/dL (8.5-10.1); MAGNESIUM 2.4 mg/dL (1.8-2.4); POTASSIUM 3.4 mmol/L (3.5-5.1)
[2021-05-21 08:00] VITALS: BP 124/42
--- NOTE | 2021-05-21 10:04 | NUR ---
Followup s/p CABG. Slow recovery of appetite but pt still eating. Offered menu for pt to choose from alternative menu. Understands on heart healthy diet and voiced no questions. Low nutrition risk
[2021-05-21] MEDS ORDERED: LIPITOR40 MG PO (12:17)
[2021-05-21] MEDS ORDERED: PACERONE 200 M200 M1 PO (12:17)
[2021-05-21 13:11] VITALS: BP 105/67
[2021-05-21] MEDS ORDERED: FLOMAX0.4 MG PO (14:45)
[2021-05-21] MEDS ORDERED: FINASTERIDE5 MG PO (14:46)
[2021-05-21] MEDS ORDERED: CEFPODOXIME PR200 M1 PO (14:47)
[2021-05-21 14:51] VITALS: BP 105/67
--- NOTE | 2021-05-21 16:08 | NUR ---
Harisht to dc home. Dtr present in room. Sp with patient disucssed home health care. Patient does not want HH care he wants to have outpatient therapy. Updated phys. Dtr in agreement she reports she lives close to patient. He resides in home with . No dc needs.
--- NOTE | 2021-05-21 17:19 | NUR ---
PASSED OFF CARE OF PATIENT FROM 0930 TO 1230. PATIENT ALERT/ORIENTED X4 AND READY FOR DISCHARGE. SPOKE WITH CTS PATIENT TO SHOWER AND REMOVED DRESSINGS, LEAVE OPEN TO AIR. MEDRANO TO REMAIN UPON DISCHARGE. SCHEDULED FOLLOW UP UROLOGY APPOINTMENT WITH DR. FERGUSON. PATIENT AWARE. ALSO AWARE OF FOLLOW UP APPOINTMENTS WITH CARDIOLOGY. REVIEWED DISCHARGE MEDICATIONS WITH PATIENT. PATIENT DENIES ANY QUESTIONS OR CONCERNS. IV DISCONTINUED. TELE MONTIOR OFF. LEG BAG PLACED FOR MEDRANO. EDUCATED ON USE.
== END 2021-05-21 16:00 | disposition home or self-care (01) | DRG 235 ==
LOC: 2N 14:51 → ICU 05-15 14:18 → 2N 05-20 17:20
PROVIDERS: Hospitalist; Internal Medicine; Nurse Practitioner; Physician Assistant; Surgery Vascular Surgery; ADMIT Internal Medicine; ATTEND Internal Medicine
PROC: 5A0935A Assistance with Respiratory Ventilation, Less than 24 Consecutive Hours, High Flow/Velocity Cannula (ICD-10-PCS; principal; 2021-05-13)
PROC: 5A0935A Assistance with Respiratory Ventilation, Less than 24 Consecutive Hours, High Flow/Velocity Cannula (ICD-10-PCS; 2021-05-15)
PROC: 02100Z9 Bypass Coronary Artery, One Artery from Left Internal Mammary, Open Approach (ICD-10-PCS; 2021-05-15)
PROC: 06BQ4ZZ Excision of Left Saphenous Vein, Percutaneous Endoscopic Approach (ICD-10-PCS; 2021-05-15)
PROC: 5A1221Z Performance of Cardiac Output, Continuous (ICD-10-PCS; 2021-05-15)
PROC: 05HY33Z Insertion of Infusion Device into Upper Vein, Percutaneous Approach (ICD-10-PCS; 2021-05-15)
PROC: 021309W Bypass Coronary Artery, Four or More Arteries from Aorta with Autologous Venous Tissue, Open Approach (ICD-10-PCS; 2021-05-15)
PROC: 30233K1 Transfusion of Nonautologous Frozen Plasma into Peripheral Vein, Percutaneous Approach (ICD-10-PCS; 2021-05-15)
PROC: 5A0935A Assistance with Respiratory Ventilation, Less than 24 Consecutive Hours, High Flow/Velocity Cannula (ICD-10-PCS; 2021-05-16)
PROC: 5A0935A Assistance with Respiratory Ventilation, Less than 24 Consecutive Hours, High Flow/Velocity Cannula (ICD-10-PCS; 2021-05-17)
PROC: 5A0935A Assistance with Respiratory Ventilation, Less than 24 Consecutive Hours, High Flow/Velocity Cannula (ICD-10-PCS; 2021-05-18)
PROC: 5A0935A Assistance with Respiratory Ventilation, Less than 24 Consecutive Hours, High Flow/Velocity Cannula (ICD-10-PCS; 2021-05-19)
PROC: 5A0935A Assistance with Respiratory Ventilation, Less than 24 Consecutive Hours, High Flow/Velocity Cannula (ICD-10-PCS; 2021-05-20)
DX: I25.10 Atherosclerotic heart disease of native coronary artery without angina pectoris (principal); I21.A1 Myocardial infarction type 2; J96.01 Acute respiratory failure with hypoxia; I50.23 Acute on chronic systolic (congestive) heart failure; G92.8 Other toxic encephalopathy; N39.0 Urinary tract infection, site not specified; I42.9 Cardiomyopathy, unspecified; E78.5 Hyperlipidemia, unspecified; E11.9 Type 2 diabetes mellitus without complications; I48.0 Paroxysmal atrial fibrillation; E66.9 Obesity, unspecified; R53.81 Other malaise; F32.9 Major depressive disorder, single episode, unspecified; N40.1 Benign prostatic hyperplasia with lower urinary tract symptoms; R33.8 Other retention of urine; R31.9 Hematuria, unspecified; R41.0 Disorientation, unspecified; Z20.822 Contact with and (suspected) exposure to COVID-19; I11.0 Hypertensive heart disease with heart failure; Z98.49 Cataract extraction status, unspecified eye; Z98.52 Vasectomy status; Z68.33 Body mass index [BMI] 33.0-33.9, adult; Z79.82 Long term (current) use of aspirin; Z79.899 Other long term (current) drug therapy
CPT/HCPCS: 10078; 10081; 10203; 10797; 47000; 47001; 47002; 47297; 47382; 48889; 50010; 50249; 50455; 50668; 51301; 52287; 53327; 53358; 54118; 56455; 56524; 56525; 56526; 56527; 56528; 56531; 56534; 56668; 56719; 56760; 56898; 57093; 57102; 57116; 57167; 58585; 58856; 58901; 58918; 62110; 62950; 65002; 65003; 65020; 65090; 65120; 65130; 65135; 83006